=== PATIENT | male | born 1990 | race Native Hawaiian/Other Pacific Islander ===

== ENCOUNTER 2018-06-01 12:24 | Outpatient (CLI) | payer BC | END 2018-06-01 22:50 | disposition home or self-care (01) | LOC: RESP 12:24 | DX: R94.31 Abnormal electrocardiogram [ECG] [EKG] (principal) | CPT/HCPCS: 93225 ==

== ENCOUNTER 2022-08-08 10:31 | Outpatient (CLI) | payer OTHER | END 2022-08-08 21:24 | disposition home or self-care (01) | LOC: RAD 10:31 | PROVIDERS: ATTEND Nurse Practitioner Family | DX: S61.210A Laceration without foreign body of right index finger without damage to nail, initial encounter (principal); Y92.89 Other specified places as the place of occurrence of the external cause ==